=== PATIENT | female | born 1950 | race Caucasian/White ===

== ENCOUNTER 2017-02-22 08:00 | Day surgery (SDC) | payer OTHER ==
[~2017-02-22] VITALS: Ht 175.3 cm; Wt 59.9 kg
[2017-02-22] MEDS ORDERED: EXCEDRIN MIGRA1 EAC2 PO (10:19)
[2017-02-22] MEDS ORDERED: MAPAP325 MG PO (13:26)
[2017-02-22] MEDS ORDERED: OXYCODON-ACETA1 EAC2 PO (13:26)
--- NOTE | 2017-02-22 14:13 | NUR ---
PT EATING PUDDING AND JELLO AND DRINKING WATER. ORDERED CHICKEN NOODLE SOUP AND MILK.
--- NOTE | 2017-02-22 15:15 | NUR ---
1450 PT DISCHARGE INSTRUCTIONS GIVEN TO PT, PT DISCHARGED TO HOME VIA TAXI. REPORTS NO PAIN OR NAUSEA.
--- NOTE | 2017-02-23 16:39 | OR ---
[facility] [address], [place] [address] Signed DATE OF OPERATION: 02/22/2017 SURGEON: Damon Sylvester MD PREOPERATIVE DIAGNOSIS: Left lateral leg basal cell carcinoma, 2.54 cm. POSTOPERATIVE DIAGNOSIS: Left lateral leg basal cell carcinoma, 2.54 cm. PROCEDURE: Excision with wide clinically negative margin of basal cell carcinoma and layered closure, excision size 6 cm total. SURGEON: Damon Sylvester MD ANESTHESIA: Local with monitored anesthesia care, Camila Sanchez CRNA INDICATION: This 66-year-old white woman is a patient of Yvonne Sutherland and was found to have a plaque-like lesion of her left lateral lower leg. It measures 2.54 cm. She underwent incisional biopsy by Yvonne Sutherland, which confirmed a basal cell carcinoma. Notably, she had a skin cancer on her right medial ankle excised by shade classifier a number of years ago under local anesthesia in the office. I have recommended excision of the lesion with possible or probable rotational flap. She strongly desires to avoid rotational flap for some reason and wishes only primary approximation if at all possible. I did emphasize that a cosmetic result may be improved with a rotational flap, but she still does not wish to pursue that. She is admitted at this time to undergo excision of the lesion with closure as best can be done. The patient also had concerns regarding anesthesia plan. I had originally suggested a general anesthetic by LMA technique. However, she refuses that and reluctantly allows sedation to be undertaken with local anesthesia as well. FINDINGS: The lesion was measured and photographed throughout the procedure. Excision was undertaken in an axial direction. Total length of the incision was 6 cm, wide excision was undertaken with a clinically negative margin of 5 to 8 mm. Full-thickness excision was undertaken and flaps elevated medially and laterally allowing for reapproximation. Closure was with 2-0 Vicryl in the deep dermal layer and a running 4-0 nylon. The operation went without problem. Cosmetic result is reasonable, though there is a bit of a divot in the midsection, which in time will remodel I believe. Electronically Signed By: DAMON SYLVESTER MD 02/23/17 1639 PATIENT NAME: ESTER WANG OPERATIVE REPORT DATE OF : 48 PHYSICIAN: DAMON SYLVESTER MD REPORT #: [id number] REPORT IS CONFIDENTIAL AND NOT TO BE RELEASED WITHOUT AUTHORIZATION [facility] [address], [place] [address] Signed DESCRIPTION OF PROCEDURE: The patient was brought to the operating room and placed in the supine position. The left lower leg was prepared with chlorhexidine solution and draped sterilely. Preoperative antibiotic Ancef was given. Sequential compression device stockings were used. She was given intravenous sedation and a field block anesthetic with 1% lidocaine with epinephrine was undertaken. Photographs were taken. Elliptical excision was undertaken in a longitudinal axial orientation in an elliptical configuration. Excision included a clinically negative margin of at least 5 mm and up to 8 mm. Full-thickness excision was undertaken. The subcutaneous tissue was excised in continuity with the lesion. Medial and lateral flaps were developed in the subcutaneous layer. The wound was then reapproximated with interrupted 2-0 Vicryl in deep dermal layer. Somewhat of a divot was noted in the midportion. The skin was closed itself with a running 4-0 nylon suture. A Xeroform gauze was applied as was an Leobardo wrap. Blood loss was minimal. She was taken to recovery room in good condition, having suffered no complications. Sponge, needle, and counts reported as correct x3. MD KIZZY Koroma/DEBBY /[id number] cc: JESIKA Feng Electronically Signed By: DAMON SYLVESTER MD 02/23/17 1639 PATIENT NAME: ESTER WANG OPERATIVE REPORT DATE OF : 48 PHYSICIAN: DAMON SYLVESTER MD REPORT #: [id number] REPORT IS CONFIDENTIAL AND NOT TO BE RELEASED WITHOUT AUTHORIZATION
== END 2017-02-22 14:50 | disposition home or self-care (01) ==
LOC: DS 08:00
PROVIDERS: Surgery
PROC: 0JBP0ZZ Excision of Left Lower Leg Subcutaneous Tissue and Fascia, Open Approach (ICD-10-PCS; 2017-02-22)
PROC: 0JQP0ZZ Repair Left Lower Leg Subcutaneous Tissue and Fascia, Open Approach (ICD-10-PCS; principal; 2017-02-22 12:00)
DX: C44.719 Basal cell carcinoma of skin of left lower limb, including hip (principal); G43.909 Migraine, unspecified, not intractable, without status migrainosus; I10 Essential (primary) hypertension; Z80.8 Family history of malignant neoplasm of other organs or systems; Z98.890 Other specified postprocedural states; Z90.89 Acquired absence of other organs
CPT/HCPCS: 00400; J0690; J2250; J2405; J2704; J3010; J7120